=== PATIENT | female | born 1985 ===

== ENCOUNTER 2018-08-21 12:41 | Emergency (ER) | payer SELFPAY ==
[2018-08-21 13:16] VITALS: TEMP 98.6
[2018-08-21 13:20] VITALS: RESP 18
--- NOTE | 2018-08-21 13:55 | C.PDOC ---
History Of Present Illness 32 year old female presents to the ED for evaluation of dysuria and cheesy, white vaginal discharge. Patient has history of UTI and bacterial vaginosis. She denies fever, chills. Time Seen by Provider: 08/21/18 13:48 Chief Complaint (Nursing): Female Genitourinary History Per: Patient History/Exam Limitations: no limitations Onset/Duration Of Symptoms: Days Past Medical History Reviewed: Historical Data, Nursing Documentation, Vital Signs Vital Signs: Last Vital Signs Temp 98.6 F 08/21/18 13:17 Pulse 104 H 08/21/18 13:17 Resp 18 08/21/18 13:17 BP 97/65 L 08/21/18 13:17 Pulse Ox 99 08/21/18 13:17 - Medical History PMH: No Chronic Diseases Surgical History: No Surg Hx Family History: States: Unknown Family Hx - Social History Hx Alcohol Use: No Hx Substance Use: No - Immunization History Hx Tetanus Toxoid Vaccination: No Hx Influenza Vaccination: No Hx Pneumococcal Vaccination: No Review Of Systems Constitutional: Negative for: Fever, Chills Genitourinary: Positive for: Dysuria, Vaginal Discharge Physical Exam - Physical Exam Appears: Non-toxic, No Acute Distress Skin: Normal Color, Warm, Dry Gastrointestinal/Abdominal: Soft, No Tenderness Back: No CVA Tenderness Pelvic: Other (deferred) Neurological/Psych: Normal Speech, Normal Cognition ED Course And Treatment - Laboratory Results Urine POC: Negative O2 Sat by Pulse Oximetry: 99 (on RA) Pulse Ox Interpretation: Normal Progress Note: Urinalysis ordered and reviewed. Urine culture obtained. Diflucan PO and Macrobid PO given. Medical Decision Making Medical Decision Making: dysuria 60 WBC's in urine macrobid U-culture sent ? Vag candidiasis h/o same 04/25 empiric complete tx given in ED Disposition Doctor Will See Patient In The: Office Counseled Patient/Family Regarding: Studies Performed, Diagnosis - Disposition Referrals: [facility] [Outside] [facility] [Outside] [facility] [Outside] [facility] [Outside] Disposition: HOME/ ROUTINE Disposition Time: 13:48 Condition: GOOD Additional Instructions: UTI: 70 WBC's en la orina Macrobid 100 mg dos veces al sp por 5 kee infecci'n de hongo del vagina Ud recebio' Diflucan 100 mg por via oral Es tratamiento completo Prescriptions: Nitrofurantoin Macrocrystals [Macrobid] 100 mg PO BID #9 cap Instructions: Vulvovaginal Yeast Infection, Urinary Tract Infections in Adults Forms: [facility] (Gambian) Print Language: KENYAN - Clinical Impression Clinical Impression: UTI (urinary tract infection) - Scribe Statement The provider has reviewed the documentation as recorded by the Scribe (Rea Zavala) Provider Attestation: All medical record entries made by the Scribe were at my direction and personally dictated by me. I have reviewed the chart and agree that the record accurately reflects my personal performance of the history, physical exam, medical decision making, and the department course for this patient. I have also personally directed, reviewed, and agree with the discharge instructions and disposition.
[2018-08-21 14:27] LABS: HCG,QUALITATIVE URINE NEGATIVE (NEGATIVE)
[2018-08-21 14:30] LABS: SQUAMOUS EPITHIAL 33 /hpf (0-5); URINE BACTERIA RARE (<OCC)
[2018-08-21 14:35] LABS: URINE BILIRUBIN NEGATIVE (NEGATIVE); URINE BLOOD NEGATIVE (NEGATIVE); URINE CLARITY SLHAZY (Clear); URINE COLOR YELLOW (YELLOW); URINE GLUCOSE (UA) NEGATIVE (Normal)
[2018-08-21 14:36] LABS: URINE LEUKOCYTE ESTERASE MODERATE Leu/uL (Negative); URINE PROTEIN NEGATIVE (NEGATIVE); URINE UROBILINOGEN 0.2 mg/dL (0.2-1.0)
[2018-08-21 14:52] VITALS: BP 100/62; PULSE 69
[2018-08-22 12:30] VITALS: O2SAT 99
== END 2018-08-21 14:52 | disposition home or self-care (01) ==
LOC: C.ER 12:41
DX: N39.0 Urinary tract infection, site not specified (principal)